=== PATIENT | female | born 2000 | race Caucasian/White ===

== ENCOUNTER 2022-01-17 07:46 | Outpatient (CLI) | payer BC, SELFPAY ==
[2022-01-17 08:36] LABS: Beta HCG Quantitative < 2.39 mIU/ML
== END 2022-01-17 07:47 | disposition home or self-care (01) ==
LOC: ANHLAB 07:49
PROVIDERS: Visit Provider Obstetrics & Gynecology
DX: N92.6 Irregular menstruation, unspecified (principal)
CPT/HCPCS: 36415; 84702